=== PATIENT | female | born 1990 | race African-American/Black ===

== ENCOUNTER 2025-01-28 13:57 | Emergency (ER) | payer OTHER ==
[~2025-01-28] VITALS: Ht 154.9 cm; Wt 80.7 kg
[2025-01-28 14:16] VITALS: TEMP 98.2
[2025-01-28 15:12] LABS: PLATELET COUNT (AUTO) 149 K/uL (150-450); RED BLOOD CELL COUNT(AUTO) 3.67 MIL/uL (4.0-5.2); RED CELL DISTRIBUTION WIDTH 13.7 % (11.5-15.0); WHITE BLOOD COUNT (AUTO) 7.9 K/uL (4.3-11.0)
[2025-01-28 15:28] LABS: CALCIUM, SERUM 8.8 mg/dL (8.5-10.1); CREATININE 0.6 mg/dL (0.6-1.3); SODIUM SERUM 135.0 mmol/L (136-145); UREA NITROGEN, BLOOD 5.0 mg/dL (7-18)
[2025-01-28] MEDS ORDERED: LABETALOL 20 MG/4 ML VIAL ONE ×3 (15:37→18:07)
[2025-01-28] MEDS: LABETALOL HCL IV 100MG VIAL IV ONE ×3 (15:58→18:11)
[2025-01-28 16:00] LABS: ASPARTATE AMINOTRANSFERASE 40.0 U/L (15-37); PREGNANCY TEST SERUM QUAN 48706.0 mIU/mL (0-6); TOTAL PROTEIN, SERUM 6.0 g/dL (6.4-8.2)
[2025-01-28] MEDS ORDERED: ACETAMINOPHEN ES 500 MG TABLET ONE (16:02)
[2025-01-28] MEDS ORDERED: ONDANSETRON HCL/PF 4 MG/2 ML VIAL ONE (16:07)
[2025-01-28] MEDS: ONDANSETRON HCL/PF - ER 4 MG/2 ML VIAL IV ONE (16:19)
[2025-01-28] MEDS: ACETAMINOPHEN ES 500 MG TABLET PO ONE (16:47)
[2025-01-28 16:54] LABS: APPEARANCE,URINE CLEAR (CLEAR); BLOOD, URINE TRACE-INTA Ery/uL (NEGATIVE); LEUKOCYTE ESTERASE ,URINE NEGATIVE (NEGATIVE); NITRITE, URINE NEGATIVE (NEGATIVE); UGLUCOSE NEGATIVE (NEGATIVE)
[2025-01-28 16:59] LABS: ADD URINE CULTURE NO
[2025-01-28 17:00] LABS: YEAST,URINE Rare /HPF (None Seen)
[2025-01-28] MEDS ORDERED: METOCLOPRAMIDE HCL 10 MG/2 ML VIAL ONE (17:15)
[2025-01-28] MEDS: METOCLOPRAMIDE HCL 10 MG/2 ML VIAL IV ONE (17:20)
[2025-01-28 18:01] VITALS: O2SAT 100
[2025-01-28 18:11] VITALS: BP 146/103
== END 2025-01-28 18:18 | disposition short-term general hospital (02) ==
LOC: ER 14:00
DX: O11.3 Pre-existing hypertension with pre-eclampsia, third trimester (principal); R51.9 Headache, unspecified; H53.8 Other visual disturbances; Z3A.35 35 weeks gestation of pregnancy
CPT/HCPCS: 99291; 96374; 96375; 76805; 99292; 96376; 85025; 80048; 83615; 80076; 83735; 84550; 81001; 36415; 84702; J2765; J2405; J7030; J3490 ×3